=== PATIENT | female | born 1995 | race African-American/Black ===

== ENCOUNTER 2019-08-29 04:30 | Emergency (ER) | payer MEDICAID ==
[~2019-08-29] VITALS: Ht 160 cm; Wt 56.7 kg
[2019-08-29] MEDS ORDERED: ALBUTEROL2.5 MG/3 M INH (04:38)
[2019-08-29 04:44] VITALS: BP 130/87
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
--- NOTE | 2019-08-29 04:50 | NUR ---
ED Nurse Note: All medications administered, pt tolerated well no ss of distress noted. Will continue to monitor.
--- NOTE | 2019-08-29 04:55 | NUR ---
ED Nurse Note: Xray at bedside
[2019-08-29] MEDS ORDERED: HYDROcodone/Acetamin 5/325 tab ORAL ONE (05:00)
--- NOTE | 2019-08-29 05:05 | NUR ---
ED Nurse Note: ERMD at bedside
[2019-08-29] MEDS ORDERED: IBUPROFEN600 M1 ORAL (05:06)
[2019-08-29 05:20] VITALS: BP 130/87
--- NOTE | 2019-08-29 05:20 | NUR ---
ER DISCHARGE NOTE: Patient is cleared to be discharged home per ERMD, pt is aox4, 98% on room air, with stable vital signs. pt was given dc and prescription instructions, pt was able to verbalize understanding, pt id band removed. pt is able to ambulate with crutches. pt took all belongings.
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
== END 2019-08-29 05:20 | disposition home or self-care (01) ==
LOC: EMR 05:20
DX: S93.602A Unspecified sprain of left foot, initial encounter (principal); V43.62XA Car passenger injured in collision with other type car in traffic accident, initial encounter; Y92.410 Unspecified street and highway as the place of occurrence of the external cause
CPT/HCPCS: 73630; Z7502; 99283